=== PATIENT | male | born 1990 | race Caucasian/White ===

== ENCOUNTER 2019-08-10 17:43 | Inpatient (IN) | payer OTHER ==
[~2019-08-10] VITALS: Ht 185.4 cm; Wt 83.5 kg
--- NOTE | 2019-08-10 18:15 | NUR ---
COLLECTED URINE, TURNED INTO STAT LAB
--- NOTE | 2019-08-10 18:19 | NUR ---
Patient to room 11 lethargic but arousable hard rub ,patient BS 110 ,bilateral pupil 4-5 sluggish obtained IV and obtained blood send to lab ,carrion urine obtained sterile technique sent to lab ,EKG ,hooked in the monitor ,gown .
--- NOTE | 2019-08-10 18:24 | NUR ---
EIDTH GENOV [phone].
--- NOTE | 2019-08-10 18:25 | NUR ---
Patient GCS score 10-11 continue to monitor suctioned As needed
[2019-08-10 19:12] LABS: BASOPHILS # (AUTO) 0.1 /CMM (0.0-0.2); BASOPHILS % (AUTO) 2.3 % (0.0-2.0); EOSINOPHILS % (AUTO) 1.7 % (0.0-6.0); HEMATOCRIT 44 % (39-51); HEMOGLOBIN 14.7 g/dL (13.5-17.5); LYMPHOCYTES # (AUTO) 2.3 /CMM (0.8-4.8); LYMPHOCYTES % (AUTO) 41.2 % (20.0-44.0); MEAN CORPUSCULAR HGB CONC 34 g/dl (31.0-36.0); MEAN CORPUSCULAR VOLUME 104 fL (80-96); MONOCYTES # (AUTO) 0.5 /CMM (0.1-1.30); MONOCYTES % (AUTO) 9.3 % (2.0-12.0); NEUTROPHILS # (AUTO) 2.5 /CMM (1.8-8.9); NEUTROPHILS % (AUTO) 45.5 % (43.0-81.0); PLATELET COUNT (AUTO) 462 /CMM (150-450); RED BLOOD CELL COUNT(AUTO) 4.18 MIL/uL (4.5-6.0); WHITE BLOOD COUNT (AUTO) 5.6 K/uL (4.3-11.0)
[2019-08-10 19:15] LABS: CALCIUM, SERUM 7.9 mg/dL (8.5-10.1); CARBON DIOXIDE 29 mmol/L (21-32); CHLORIDE 103 mmol/L (98-107); GLUCOSE 112 mg/dL (74-106); POTASSIUM 3.4 mmol/L (3.5-5.1); SODIUM SERUM 142 mmol/L (136-145); UREA NITROGEN, BLOOD 7 mg/dL (7-18)
[2019-08-10 19:22] LABS: ALANINE AMINOTRANSFERASE 59 U/L (12-78); ALCOHOL, BLOOD 672 mg/dL (0-0); ALKALINE PHOSPHATASE 51 U/L (46-116); ASPARTATE AMINOTRANSFERASE 60 U/L (15-37); BILIRUBIN,DIRECT 0.1 mg/dL (0.0-0.2); BILIRUBIN,TOTAL 0.2 mg/dL (0.2-1.0); SALICYLATE 4.6 mg/dL (2.8-20.0); TOTAL PROTEIN, SERUM 7.2 g/dL (6.4-8.2)
[2019-08-10 19:24] LABS: ACETAMINOPHEN 0 ug/ml (10-30)
[2019-08-10] MEDS ORDERED: IV NS 0.9% 1,000 ML BAG IV ONE (19:30)
[2019-08-10 19:47] LABS: APPEARANCE,URINE CLEAR (CLEAR); BILIRUBIN,URINE NEGATIVE (NEGATIVE); BLOOD, URINE NEGATIVE Ery/uL (NEGATIVE); COLOR,URINE YELLOW (YELLOW); KETONES,URINE NEGATIVE (NEGATIVE); LEUKOCYTE ESTERASE ,URINE NEGATIVE (NEGATIVE); NITRITE, URINE NEGATIVE (NEGATIVE); PROTEIN,URINE 30 mg/dl (NEGATIVE); UGLUCOSE NEGATIVE (NEGATIVE); UROBILINOGEN,URINE 0.2 EU/dL (0.2)
[2019-08-10 19:55] LABS: BACTERIA,URINE Few /HPF (None Seen); RBC,URINE 0-2 /HPF (0-2); SQUAMOUS EPITHELIAL CELL,UR Few /HPF (None Seen); WBC,URINE 0-2 /HPF (0-3)
[2019-08-10 19:56] LABS: HYALINE CASTS, URINE Few /LPF (None Seen)
[2019-08-10] MEDS ORDERED: CEFTRIAXONE 1GM BAG (ER ONLY) 1 GM/50 ML PIGGYBACK IV ONE (21:00)
[2019-08-10] MEDS ORDERED: AZITHROMYCIN 500 MG in IV D5W 250 ML IV ONE (21:00)
[2019-08-10] MEDS ORDERED: CEFTRIAXONE 1GM BAG (ER ONLY) 50 ML IV ONE (21:04)
--- NOTE | 2019-08-10 21:18 | NUR ---
PROVIDED CLINICALS TO COMMISSIONER OF OFFICIALS FOR INSURANCE AUTH.
--- NOTE | 2019-08-10 21:48 | NUR ---
SPOKE W/ ORTHODONTIST VICE PRESIDENT,SANDRA FOR CLINICAL INFO
--- NOTE | 2019-08-10 22:15 | NUR ---
called rn sup for tele bed.
[2019-08-10] MEDS ORDERED: AZITHROMYCIN 500 MG VIAL ONE (22:21)
[2019-08-10] MEDS ORDERED: ONDANSETRON HCL/PF 4 MG/2 ML VIAL IVP PRN (22:30)
[2019-08-10] MEDS ORDERED: LORAZEPAM INJ 2 MG/ML VIAL IV PRN (22:30)
[2019-08-10] MEDS ORDERED: ACETAMINOPHEN 325 MG TABLET PO PRN (22:30)
[2019-08-10] MEDS ORDERED: ALBUTEROL SULFATE 8 GM HFA.AER.AD IH PRN (22:30)
--- NOTE | 2019-08-10 23:12 | NUR ---
REPORT GIVEN TO IVORY AGUILAR FOR RICHARD; PT WILL BE TRANSPORTED TO 1ST FLOOR
--- NOTE | 2019-08-10 23:28 | NUR ---
PT TRANSPORTED TO 1ST FLOOR
--- NOTE | 2019-08-10 23:31 | NUR ---
COVID SWABS SENT TO LAB
[2019-08-10] MEDS: IV NS 0.9% 1,000 ML IV PRN (23:35)
--- NOTE | 2019-08-10 23:54 | NUR ---
EDITOR IN CHIEF ADMITTING NOTES RECEIVED REPORT FROM JEFF LUNDBERG APPROX 2255; PATIENT ARRIVED TO UNIT VIA GURNEY APPROX 2330; PATIENT AWAKE, A/OX2; SLIGHTLY CONFUSED; PER JEFF LUNDBERG ETOH LEVEL 627; BREATHING EVEN AND UNLABORED; PATIENT TOLERATING ROOM AIR WELL; NO SOB NOTED; PATIENT HAS SURGICAL MASK ON; ISOLATION PRECAUTIONS IMPLEMENTED; PATIENT REPORTS SHE DOES NOT REMEMBER MEDICAL HISTORY; PATIENT REFUSING FLU VACCINE; TELE MONITOR ATTACHED, READS SINUS TACHY; VITALS SIGNS STABLE AND WNL; L AC # 20 INTACT AND PATENT; FLUSHING WELL; INFUSING NS @ 125ML/HR; TOLERATING IVF WELL; PATIENT ABLE TO AMBULATE AND ABLE TO MAKE NEEDS KNOWN; ORIENTED TO UNIT AND TO STAFF; SAFETY PRECAUTIONS IMPLEMENTED; BED LOCKED IN LOW POSITION; SIDE RAILS X2; CALL LIGHT WITHIN REACH; BED ALARM ON; WILL CONT TO MONITOR
[2019-08-10] MEDS ORDERED: CEFEPIME 1 GM VIAL ONE (23:55)
[2019-08-11] VITALS: BP 126/79
[2019-08-11] MEDS ORDERED: CEFEPIME 1 GM in IV D5W 50 ML IV SCH ×2
--- NOTE | 2019-08-11 02:09 | NUR ---
FIRE PROTECTION DESIGNER NOTES PATIENT CURRENTLY ASLEEP; EASILY AROUSED BY TOUCH; WILL CONT TO MONITOR
[2019-08-11 04:00] VITALS: BP 119/80
--- NOTE | 2019-08-11 06:15 | NUR ---
REDUCING MACHINE OPERATOR NOTES SPOKE WITH PHARMACY REGARDING PATIENT ALLERGIES; PATIENT DOES UNABLE TO RECALL IF ALLERGIC TO ANYTHING; PATIENT A/OX2, CONFUSED; PATIENT ETOH LEVEL 672; WILL INFORM ONCOMING SHIFT
--- NOTE | 2019-08-11 06:41 | NUR ---
FABRICATOR FOAM RUBBER CLOSING NOTES PATIENT SLEEPING IN BED COMFORTABLY; EASILY AROUSED BY LIGHT STIMULI; A/OX2, PATIENT STILL CONFUSED; PATIENT UNABLE TO RECALL MUCH OF MEDICAL HISTORY/ALLERGIES AT THIS TIME; PHARMACY AWARE; TELE MONITOR READS NSR 60 BPM; L AC # 20 INTACT AND PATENT, INFUSING NS @ 125ML/HR, PATIENT TOLERATING IVF WELL; ALL NEEDS RENDERED; ISOLATION PRECAUTIONS MAINTAINED; SAFETY PRECAUTIONS IMPLEMENTED; BED LOCKED IN LOW POSITION, BED ALARM ON; SIDE RAILS X2; CALL LIGHT WITHIN REACH; WILL ENDORSE RICHARD TO ONCOMING SHIFT
[2019-08-11 06:55] LABS: BASOPHILS % (AUTO) 0.6 % (0.0-2.0); EOSINOPHILS % (AUTO) 1.1 % (0.0-6.0); HEMATOCRIT 41 % (39-51); HEMOGLOBIN 13.8 g/dL (13.5-17.5); LYMPHOCYTES # (AUTO) 2.1 /CMM (0.8-4.8); LYMPHOCYTES % (AUTO) 37.9 % (20.0-44.0); MEAN CORPUSCULAR HGB CONC 34 g/dl (31.0-36.0); MEAN CORPUSCULAR VOLUME 103 fL (80-96); MONOCYTES # (AUTO) 0.3 /CMM (0.1-1.30); MONOCYTES % (AUTO) 5.5 % (2.0-12.0); NEUTROPHILS # (AUTO) 3.1 /CMM (1.8-8.9); NEUTROPHILS % (AUTO) 54.9 % (43.0-81.0); PLATELET COUNT (AUTO) 370 /CMM (150-450); RED BLOOD CELL COUNT(AUTO) 3.99 MIL/uL (4.5-6.0); WHITE BLOOD COUNT (AUTO) 5.6 K/uL (4.3-11.0)
--- NOTE | 2019-08-11 07:28 | NUR ---
SLIP FEEDER NOTES RECEIVED PT IN BED, ASLEEP, EASILY AROUSED, A/O X2 TOLERATING RA, WITH NO ACUTE RESPIRATORY DISTRESS NOTED. ON TELEMONITORING WITH SR 65. PT DENIES ANY PAIN OR DISCOMFORT AT THIS TIME. IVF NS AT 125ML/HR TO LAC G20, INTACT AND FLUID INFUSING WELL. PT KEPT COMFORTABLE. PT'S BED IN LOWEST, LOCKED POSITION WITH SRX3. CALL LIGHT KEPT WITHIN REACH. WILL CONTINUE PLAN OF CARE.
[2019-08-11 07:59] LABS: ALBUMIN 3.6 g/dL (3.4-5.0); BILIRUBIN,TOTAL 0.3 mg/dL (0.2-1.0); CALCIUM, SERUM 7.4 mg/dL (8.5-10.1); CREATININE 0.8 mg/dL (0.6-1.3); POTASSIUM 3.6 mmol/L (3.5-5.1); TOTAL PROTEIN, SERUM 6.5 g/dL (6.4-8.2)
[2019-08-11 08:00] VITALS: BP 127/87
[2019-08-11] MEDS ORDERED: CEFEPIME 2 GM in IV D5W 100 ML IV SCH (08:00)
[2019-08-11] MEDS ORDERED: DOXYCYCLINE 100 MG in IV D5W 100 ML IV SCH (09:00)
[2019-08-11] MEDS ORDERED: MULTIVIT W/MINERALS 1 TAB TABLET PO SCH (09:00)
[2019-08-11] MEDS ORDERED: FOLIC ACID 1 MG TABLET PO ONE (09:00)
[2019-08-11] MEDS ORDERED: THIAMINE HCL 100 MG TABLET PO SCH (09:00)
[2019-08-11] MEDS: IV NS 0.9% 1,000 ML IV PRN (09:34)
--- NOTE | 2019-08-11 11:15 | NUR ---
AUTOMATION ENGINEERING MANAGER NOTES PT PULLED OUT PIV TO LAC, PT AWARE HE'S GOING HOME, INSISTING TO LEAVE AT THIS TIME. RN EDUCATED PT ABOUT PROTOCOL. INFORMED PT WELL RN SPOKE TO TELIA/GIRLFRIEND OF PT, STATING TELIA WILL BE PICKING HIM UP IN A BIT. PT ALSO INFORMED ABOUT AWAITING FOR DISCHARGE PAPERS.
[2019-08-11 12:00] VITALS: BP 149/91
[2019-08-11 12:28] LABS: C-REACTIVE PROTEIN 0.4 mg/dL (0.0-0.9)
--- NOTE | 2019-08-11 13:50 | NUR ---
WAGE ADJUSTER NOTES PT MORE ALERT AND AWAKE NOW, A/O X4. PT TOLERATING RA, WITH NO ACUTE RESPIRATORY DISTRESS NOTED. PT DENIES ANY PAIN OR DISCOMFORT AT THE TIME OF DISCHARGE. NO PIV NOTED, PT PULLED OUT THIS MORNING. PT REVIEWED AND SIGNED DISCHARGE INSTRUCTIONS AND INVENTORY LIST. ALL BELONGINGS WITH THE PT. PT ALSO INSTRUCTED TO FOLLOW UP WITH COVID RESULT, PT ASYMPTOMATIC. SKIN INTACT, NO PICTURES FILED IN THE CHART. ALL NEEDS AND CARE ATTENDED. PT ESCORTED TO THE LOBBY VIA WHEELCHAIR, HOUSEMATE/MIGUEL CAME TO PICK HIM UP AT THE LOBBY. PT LEFT THE UNIT AT 1340 ACCORDING TOT HE CHARGE NURSE. HOSPITALIST/CC AWARE OF DISCHARGE.
[2019-08-11] MEDS ORDERED: DOXYCYCLINE HYCLATE (100 MG) 100 MG TABLET PO SCH (21:00)
== END 2019-08-11 14:00 | disposition home or self-care (01) | DRG 816 ==
LOC: ER 17:52 → MEDSG1 22:24 → TELE1 23:30
PROVIDERS: ADMIT Nurse Practitioner Acute Care; ATTEND Nurse Practitioner Acute Care
DX: T51.0X1A Toxic effect of ethanol, accidental (unintentional), initial encounter (principal); J69.0 Pneumonitis due to inhalation of food and vomit; G92 Toxic encephalopathy; Y90.8 Blood alcohol level of 240 mg/100 ml or more; F10.129 Alcohol abuse with intoxication, unspecified; F19.10 Other psychoactive substance abuse, uncomplicated; Y92.009 Unspecified place in unspecified non-institutional (private) residence as the place of occurrence of the external cause; J98.11 Atelectasis; E83.51 Hypocalcemia
CPT/HCPCS: 36415; 70450-TC; 71045-TC; 71250-TC; 72125-TC; 80048-TC; 80053-TC; 80076-TC; 80305; 81000-TC; 82728-TC; 82962-TC; 83615-TC; 84484-TC; 85025-TC; 86140-TC; 87081-TC; G0378; G0480; J0456; J0692; J0696; J3490; J7030; J7060; L0172; U0003-CS

== ENCOUNTER 2019-08-15 16:06 | Emergency (ER) | payer OTHER ==
[~2019-08-15] VITALS: Ht 177.8 cm; Wt 95.3 kg
--- NOTE | 2019-08-15 16:15 | NUR ---
[facility], room mate called 911 - witnessed seizure; lasted < 1 minute known ETOH abuse per report; accu check - 132 mm/dl. On room air, breathing evenly and unlabored. connected to the monitor and pulse ox. kept comfortable, will continue to monitor accordingly.
[2019-08-15] MEDS ORDERED: LEVETIRACETAM (500MG) 1,000 MG in IV NS 0.9% 100 ML IV SCH (16:30)
[2019-08-15 16:55] LABS: BASOPHILS % (AUTO) 0.5 % (0.0-2.0); EOSINOPHILS % (AUTO) 1.1 % (0.0-6.0); HEMATOCRIT 46 % (39-51); HEMOGLOBIN 15.7 g/dL (13.5-17.5); LYMPHOCYTES # (AUTO) 0.7 /CMM (0.8-4.8); LYMPHOCYTES % (AUTO) 16.2 % (20.0-44.0); MEAN CORPUSCULAR HGB CONC 34 g/dl (31.0-36.0); MEAN CORPUSCULAR VOLUME 102 fL (80-96); MONOCYTES # (AUTO) 0.3 /CMM (0.1-1.30); MONOCYTES % (AUTO) 7.4 % (2.0-12.0); NEUTROPHILS # (AUTO) 3.1 /CMM (1.8-8.9); NEUTROPHILS % (AUTO) 74.8 % (43.0-81.0); PLATELET COUNT (AUTO) 161 /CMM (150-450); RED BLOOD CELL COUNT(AUTO) 4.51 MIL/uL (4.5-6.0); WHITE BLOOD COUNT (AUTO) 4.1 K/uL (4.3-11.0)
[2019-08-15 17:06] LABS: ALANINE AMINOTRANSFERASE 112 U/L (12-78); ALBUMIN 4.5 g/dL (3.4-5.0); ALKALINE PHOSPHATASE 62 U/L (46-116); ASPARTATE AMINOTRANSFERASE 109 U/L (15-37); BILIRUBIN,DIRECT 0.3 mg/dL (0.0-0.2); CALCIUM, SERUM 9.3 mg/dL (8.5-10.1); CARBON DIOXIDE 26 mmol/L (21-32); CHLORIDE 95 mmol/L (98-107); CREATININE 1.1 mg/dL (0.6-1.3); GLUCOSE 132 mg/dL (74-106); POTASSIUM 3.1 mmol/L (3.5-5.1); SODIUM SERUM 136 mmol/L (136-145); TOTAL PROTEIN, SERUM 7.7 g/dL (6.4-8.2); UREA NITROGEN, BLOOD 7 mg/dL (7-18)
[2019-08-15 17:12] LABS: ALCOHOL, BLOOD < 3 mg/dL (0-0)
[2019-08-15] MEDS ORDERED: CHLORDIAZEPOXIDE HCL 25 MG CAPSULE ONE (17:46)
[2019-08-15 17:51] VITALS: BP 140/81
--- NOTE | 2019-08-15 17:51 | NUR ---
Patient discharged to home in stable condition. Written and verbal after care instructions given. Patient verbalizes understanding of instruction.IV removed. Catheter intact and site benign. Pressure and 4x4 applied to site. No bleeding noted.
[2019-08-15] MEDS ORDERED: CHLORDIAZEPOXIDE HCL 25 MG CAPSULE PO ONE (18:00)
== END 2019-08-15 17:51 | disposition home or self-care (01) ==
LOC: ER 16:07
DX: F10.239 Alcohol dependence with withdrawal, unspecified (principal); R56.9 Unspecified convulsions; R41.0 Disorientation, unspecified; Y90.0 Blood alcohol level of less than 20 mg/100 ml
CPT/HCPCS: 36415; 70450; 80048; 80076; 80305; 80307; 85025; 96365; 99284; J1953; J7030; G0480